=== PATIENT | female | born 1960 | race Caucasian/White ===

== ENCOUNTER 2023-02-11 03:01 | Emergency (ER) | payer BC ==
[~2023-02-11] VITALS: Ht 167.6 cm; Wt 121.1 kg
--- NOTE | 2023-02-11 03:09 | NUR ---
VICTOR HUGO 40 FROM HOME C/O MIDSTERNAL CP. 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 UPON ARRIVAL PAIN SCALE 09/28. A/OX4. PT TOLERATING R/A AT 95%. CONNECTED PT TO POX AND MONITOR. SAFETY MEASURES IN PLACE.
--- NOTE | 2023-02-11 03:23 | NUR ---
EMT AT PT'S BEDSIDE FOR EKG
--- NOTE | 2023-02-11 03:24 | NUR ---
RAC #18G S/L BLOOD COLLECTED AND SENT TO LAB
[2023-02-11 03:40] LABS: BASOPHILS % (AUTO) 0.3 % (0.0-2.0); EOSINOPHILS % (AUTO) 0.4 % (0.0-6.0); HEMATOCRIT 44 % (33-45); HEMOGLOBIN 14.2 g/dL (11.5-14.8); LYMPHOCYTES # (AUTO) 3.6 K/uL (0.8-4.8); LYMPHOCYTES % (AUTO) 32.1 % (20.0-44.0); MEAN CORPUSCULAR HGB CONC 32 g/dl (31.0-36.0); MEAN CORPUSCULAR VOLUME 90 fL (82-100); MONOCYTES # (AUTO) 0.6 K/uL (0.1-1.30); MONOCYTES % (AUTO) 5.3 % (2.0-12.0); NEUTROPHILS # (AUTO) 6.9 K/uL (1.8-8.9); NEUTROPHILS % (AUTO) 61.9 % (43.0-81.0); PLATELET COUNT (AUTO) 229 K/uL (150-450); RED BLOOD CELL COUNT(AUTO) 4.84 MIL/uL (4.0-5.2); WHITE BLOOD COUNT (AUTO) 11.2 K/uL (4.3-11.0)
[2023-02-11 03:46] LABS: CALCIUM, SERUM 9.6 mg/dL (8.5-10.1); CARBON DIOXIDE 29 mmol/L (21-32); CHLORIDE 106 mmol/L (98-107); CREATININE 0.8 mg/dL (0.6-1.3); GLUCOSE 96 mg/dL (74-106); POTASSIUM 4.3 mmol/L (3.5-5.1); SODIUM SERUM 143 mmol/L (136-145); UREA NITROGEN, BLOOD 21 mg/dL (7-18)
[2023-02-11 03:58] LABS: ALANINE AMINOTRANSFERASE 41 U/L (12-78); ALBUMIN 3.1 g/dL (3.4-5.0); ALKALINE PHOSPHATASE 79 U/L (46-116); ASPARTATE AMINOTRANSFERASE 11 U/L (15-37); BILIRUBIN,DIRECT 0.2 mg/dL (0.0-0.2); BILIRUBIN,TOTAL 0.5 mg/dL (0.2-1.0); TOTAL PROTEIN, SERUM 6.2 g/dL (6.4-8.2)
[2023-02-11 05:23] VITALS: BP 140/83
--- NOTE | 2023-02-11 05:23 | NUR ---
Patient discharged to home in stable condition. Written and verbal after care instructions given. Patient verbalizes understanding of instruction. IV removed. Catheter intact and site benign. Pressure and 4x4 applied to site. No bleeding noted.
== END 2023-02-11 05:32 | disposition home or self-care (01) ==
LOC: ER 03:06
DX: R07.89 Other chest pain (principal); E03.9 Hypothyroidism, unspecified; Z88.0 Allergy status to penicillin
CPT/HCPCS: 36415; 71045-TC; 80048-TC; 80076-TC; 83880; 84484-TC; 85025-TC

== ENCOUNTER 2025-09-01 14:27 | Emergency (ER) | payer BC ==
[~2025-09-01] VITALS: Ht 167.6 cm; Wt 120.2 kg
[2025-09-01] MEDS ORDERED: HYDROCODONE/APAP 5/325MG TABLET ONE (15:42)
[2025-09-01] MEDS: HYDROCODONE/APAP 5/325MG TABLET PO ONE (15:44)
[2025-09-01] MEDS ORDERED: HYDR-4209 PO (19:16)
[2025-09-01] MEDS ORDERED: IBUP-1955 PO (19:16)
[2025-09-01 19:23] VITALS: BP 128/81; TEMP 97.6; O2SAT 98
== END 2025-09-01 19:23 | disposition home or self-care (01) ==
LOC: ER 14:33
DX: S42.211A Unspecified displaced fracture of surgical neck of right humerus, initial encounter for closed fracture (principal); Z88.0 Allergy status to penicillin; W01.0XXA Fall on same level from slipping, tripping and stumbling without subsequent striking against object, initial encounter; Y93.89 Activity, other specified; Y92.009 Unspecified place in unspecified non-institutional (private) residence as the place of occurrence of the external cause; Y99.8 Other external cause status
CPT/HCPCS: 72170-TC; 73030-TC; 73060-TC; 73070-TC; 73110; 73564-TC